=== PATIENT | male | born 1990 | race Caucasian/White ===

== ENCOUNTER 2018-04-07 12:36 | Emergency (ER) | payer SELFPAY, OTHER ==
[2018-04-07] MEDS ORDERED: ISOVUE-370 76% 100ML VIAL (Q9967) As Ordered (14:10)
== END 2018-04-07 15:20 | disposition home or self-care (01) ==
LOC: M ED 12:36
DX: R09.1 Pleurisy (principal); F17.200 Nicotine dependence, unspecified, uncomplicated; Z88.0 Allergy status to penicillin
CPT/HCPCS: Q9967